=== PATIENT | female | born 1965 | race Native Hawaiian/Other Pacific Islander ===

== ENCOUNTER 2016-10-02 16:15 | Observation (INO) | payer SELFPAY ==
--- NOTE | 2016-10-02 17:53 | DX ---
PA and lateral chest History: Cough, shortness of breath for 4 days. Comparison: None available. Findings: There is diffuse peribronchial thickening with patchy left basilar opacities. There is no p neumothorax or pleural effusion. Heart size is normal. Degenerative change is present in the spine. Impression: Bronchitis with indistinct left basilar opacities that could be related to summation or e mukesh pneumonia.
--- NOTE | 2016-10-02 19:11 | DX ---
Left foot 2 views History: Mild and diffuse swelling for months without trauma. No erythema. Comparison: None available. Findings: There are destructive changes in the midfoot consistent with Charcot foot. There is lateral subluxation of the 2nd through 5th metatarsals consistent with sequela of old/subacute Lisfranc inju ry with extensive periosteal reaction in the affected metatarsals. Destructive changes in the midfoot include markedly irregular contour of the navicular at its articulation of the medial cuneiform, wit h extensive heterotopic bone formation at the dorsal aspect of the midfoot. Pes planus is present. Ca lcaneal spurring is noted at the plantar aponeurosis and Achilles tendon. Diffuse soft tissue swellin g is present. Impression: 1. Charcot foot with old/subacute Lisfranc fracture/dislocations. 2. Diffuse soft tissue swelling. Findings discussed with Sarah Miller today at 1906 hours.
[2016-10-02 19:31] LABS: % IMMATURE GRANULYOCYTES 0.2 % (0.0-1.1); ABSOLUTE IMMATURE GRANULOCYTES 0.01 10^3/uL (0.00-0.10); ADD DIFF? NO; ADD MORPH? NO; ADD SCAN? NO; ATYPICAL LYMPHOCYTE FLAG 40 (0-99); FRAGMENT RBC FLAG 0 (0-99); HEMATOCRIT 33.8 % (38.0-47.0); HEMOGLOBIN 10.9 g/dL (12.6-16.3); LEFT SHIFT FLG 0 (0-99); LIPEMIA HEMOLYSIS FLAG 80 (0-99); MEAN CELL HEMOGLOBIN 25.5 pg (27.9-34.1); MEAN CELL HEMOGLOBIN CONCENTR. 32.2 g/dL (32.4-36.7); MEAN PLATELET VOLUME 9.6 fL (8.7-11.7); PLATELET CLUMPS FLAG 0 (0-99); PLATELET COUNT 280 10^3/uL (150-400); RED BLOOD CELL COUNT 4.28 10^6/uL (4.18-5.33); RED CELL DISTRIBUTION WIDTH 12.6 % (11.5-15.2)
[2016-10-02 19:51] LABS: ALANINE AMINOTRANSFERASE 22 IU/L (9-52); ALBUMIN 3.2 g/dL (3.5-5.0); ALKALINE PHOSPHATASE 100 IU/L (38-126); ANION GAP 10 mEq/L (8-16); ASPARTATE AMINOTRANSFERASE 15 IU/L (14-46); BILIRUBIN,TOTAL 0.5 mg/dL (0.1-1.4); CALCIUM 8.7 mg/dL (8.5-10.4); CARBON DIOXIDE 27 mEq/l (22-31); CHLORIDE 96 mEq/L (97-110); CREATININE 0.9 mg/dL (0.6-1.0); GLOMERULAR FILTRATION RATE > 60; GLUCOSE 319 mg/dL (70-100); POTASSIUM 4.1 mEq/L (3.5-5.2); SODIUM 133 mEq/L (134-144); TOTAL PROTEIN 7.1 g/dL (6.3-8.2)
[2016-10-02] MEDS ORDERED: IOPAMIDOL (ISOVUE 370) 100 ML BTL IV ONE (20:08)
[2016-10-02] MEDS ORDERED: NS 1,000 ML IV ONE (20:27)
--- NOTE | 2016-10-02 20:49 | CT ---
CT of the Chest With Contrast (CT Pulmonary Angiogram) October 02, 2016 Clinical History: Chest pain Technique: Thinly collimated multidetector helical CT imaging was performed through the chest while 90 mL of Isovue-370 were injected intravenously without complication. The images were then transferr ed to an independent workstation where multiplanar and three-dimensional reconstructions were perform ed by the interpreting physician and reviewed at multiple windows. Dose reduction techniques were uti lized. Findings: Lung Windows: No infiltrate, effusion, or mass identified. Mediastinal Windows: No significant mediastinal or axillary lymphadenopathy identified. No significan t pleural disease identified. Images of the upper abdomen appear normal. CT Pulmonary Angiogram: The visualized pulmonary arterial segments appear normal without filling defe ct to suggest acute pulmonary thromboembolic disease. Impression: Negative CT examination of the chest for acute pulmonary thromboembolic disease. Results called to Dr. Miller at 8:45 p.m. at the time of the interpretation.
--- NOTE | 2016-10-02 21:07 | UCPHY ---
H & P Time Seen by Provider: 10/02/16 18:10 Patient Type: Established HPI/ROS: 51-year-old female presents complaining of cough and cold symptoms, and states she to also would like to know what is wrong with her foot that has been swollen for 4 months. She states she was seen here 2 months ago for an abscess on her chest. She states she had foot swelling and pain at that time and it has not improved, but admits that it has been swollen close to 4 months She denies pain in her foot today. The patient is able to walk without difficulty, while waiting in the waiting room she went shopping at [employer]. Review of systems As per HPI-positive cough, nasal congestion, left leg swelling General no fever no chills no weakness HEENT no eye pain no eye discharge. No eye redness, no sore throat Respiratory positive cough, no shortness of breath Cardiac no chest pain, no peripheral edema GI no abdominal pain, no diarrhea, no constipation, no nausea, no vomiting no flank pain, no hematuria, no dysuria Musculoskeletal no myalgias, positive joint pain Heme no easy bruising, no easy bleeding Endo no polyuria, no polydipsia Skin no rashes, no pruritus Neuro no syncope, no dizziness, no headaches Psych is no suicidal ideation, no homicidal ideation Past Medical/Surgical History: Patient states she has not gone to her primary care and is currently not being treated for any medical problem Social History: Recently moved here from [place] Smoking Status: Never smoked Physical Exam: 51-year-old female alert and oriented in no acute distress, nontoxic appearance afebrile HEENT atraumatic normocephalic, extraocular muscles intact, anicteric Oropharynx negative for erythema negative exudate, tolerating her own secretions Neck supple no meningismus Lungs clear to auscultation bilaterally Heart regular rate and rhythm without murmur rub or gallop Abdomen nondistended normoactive bowel sounds soft nontender Back no CVA tenderness, no step-offs, no spinal tenderness Extremities no cyanosis clubbing or edema Except left lower extremity-no erythema, no increased warmth, markedly swollen and deformed left foot with swelling up to her knee No evidence of ulcerations, no lymphangitic streaks Neuro alert and oriented, no focal deficits Constitutional: Initial Vital Signs Temperature (C) 36.9 C 10/02/16 17:28 Heart Rate 66 10/02/16 17:28 Respiratory Rate 16 10/02/16 17:28 Blood Pressure 190/87 H 10/02/16 17:28 O2 Sat (%) 98 10/02/16 17:28 O2 Delivery Mode Room Air Allergies/Adverse Reactions: No Known Allergies Allergy (Unverified 07/31/16 17:14) Home Medications: Medication Instructions Recorded Metformin HCl 500 mg PO BID #60 tablet 10/02/16 Medical Decision Making - Diagnostics Imaging: Left foot Angelica franc fracture, charcot foot cxr neg chest ct neg ED Course/Re-evaluation: Patient seen and evaluated for cough and cold symptoms, concerned about swelling in her left foot and left lower extremity for several months. IV established, lab sent Chest x-ray done, negative CBC no elevated white blood cell count Glucose 320, no acidosis IV normal saline 1 L started Foot x-ray positive for Charcot foot, Lisfranc fracture D-dimer elevated CT chest negative for pulmonary embolus still needs ultrasound to rule out DVT impression/plan 1)cold, symptomatic care 2)diabetes, will start Metformin until she can follow up 500 mg bid, given one month supply 3)hypertension, will need to follow up 4)left foot deformity, will need podiatry follow up 5) left leg swelling, need to rule out DVT sent to [facility] [place] to get ultrasoud to rule out DVT tonight - Data Points Laboratory Results: Laboratory Results 10/02/16 19:25 10/02/16 19:25 10/02/16 19:25 WBC 5.06 10^3/uL (3.80-9.50) RBC 4.28 10^6/uL (4.18-5.33) Hgb 10.9 L g/dL (12.6-16.3) Hct 33.8 L % (38.0-47.0) MCV 79.0 L fL (81.5-99.8) MCH 25.5 L pg (27.9-34.1) MCHC 32.2 L g/dL (32.4-36.7) RDW 12.6 % (11.5-15.2) Plt Count 280 10^3/uL (150-400) MPV 9.6 fL (8.7-11.7) Neut % (Auto) 50.7 % (39.3-74.2) Lymph % (Auto) 34.6 % (15.0-45.0) [place] % (Auto) 10.3 % (4.5-13.0) Eos % (Auto) 3.8 % (0.6-7.6) Baso % (Auto) 0.4 % (0.3-1.7) Nucleat RBC Rel Count 0.0 % (0.0-0.2) Absolute Neuts (auto) 2.57 10^3/uL (1.70-6.50) Absolute Lymphs (auto) 1.75 10^3/uL (1.00-3.00) Absolute Monos (auto) 0.52 10^3/uL (0.30-0.80) Absolute Eos (auto) 0.19 10^3/uL (0.03-0.40) Absolute Basos (auto) 0.02 10^3/uL (0.02-0.10) Absolute Nucleated RBC 0.00 10^3/uL (0-0.01) Immature Gran % 0.2 % (0.0-1.1) Immature Gran # 0.01 10^3/uL (0.00-0.10) D-Dimer 1.14 H ug/mLFEU (0.00-0.50) Sodium 133 L mEq/L (134-144) Potassium 4.1 mEq/L (3.5-5.2) Chloride 96 L mEq/L (97-110) Carbon Dioxide 27 mEq/l (22-31) Anion Gap 10 mEq/L (8-16) BUN 20 mg/dL (7-23) Creatinine 0.9 mg/dL (0.6-1.0) Estimated GFR > 60 Glucose 319 H mg/dL (70-100) Calcium 8.7 mg/dL (8.5-10.4) Total Bilirubin 0.5 mg/dL (0.1-1.4) AST 15 IU/L (14-46) ALT 22 IU/L (9-52) Alkaline Phosphatase 100 IU/L (38-126) Total Protein 7.1 g/dL (6.3-8.2) Albumin 3.2 L g/dL (3.5-5.0) Medications Given: Discontinued Medications Sodium Chloride (Ns) 1,000 mls @ 0 mls/hr IV ONCE ONE PRN Reason: Wide Open Stop: 10/02/16 20:28 Last Admin: 10/02/16 20:53 Dose: 1,000 mls Departure - Departure Clinical Impression: Lisfranc fracture, Diabetes, Hypertension Additional Instructions: Go directly to [facility] They are expecting you in order to get an ultrasound of your left leg swelling. Referrals: NONE *PRIMARY CARE P,. [Primary Care Provider] - As per Instructions [facility] [Provider Group] - As per Instructions [facility] [Provider Group] - As per Instructions Braulio Garcia DPM [Doctor of Podiatric Medicine] - As per Instructions Prescriptions: Metformin HCl 500 mg PO BID #60 tablet - PQRS PQRS Measurement: na
--- NOTE | 2016-10-02 22:37 | EDPHY ---
H & P Time Seen by Provider: 10/02/16 18:10 HPI/ROS: HPI CHIEF COMPLAINT: [ ] HISTORY OF PRESENT ILLNESS: [Need 4: Location, Duration, Severity, Quality, Context, Timing Modifying Factors, Associated S&S] Past Medical History: Past Surgical History: Social History: Family History: ROS REVIEW OF SYSTEMS: A comprehensive 10 point review of systems is otherwise negative aside from elements mentioned in the history of present illness. Exam Constitutional triage nursing summary reviewed, vital signs reviewed, awake/ alert. Eyes normal conjunctivae and sclera, EOMI, PERRLA. HENT normal inspection, atraumatic, moist mucus membranes, no epistaxis, neck supple/ no meningismus, no raccoon eyes. Respiratory clear to auscultation bilaterally, normal breath sounds, no respiratory distress, no wheezing. Cardiovascular rate normal, regular rhythm, no murmur, no edema, distal pulses normal. Gastrointestinal soft, non-tender, no rebound, no guarding, normal bowel sounds, no distension, no pulsatile mass. Genitourinary no CVA tenderness. Musculoskeletal no midline vertebral tenderness, full range of motion, no calf swelling, no tenderness of extremities, no meningismus, good pulses, neurovascularly intact. Skin pink, warm, & dry, no rash, skin atraumatic. Neurologic awake, alert and oriented x 3, AAOx3, moves all 4 extremities equally, motor intact, sensory intact, CN II-XII intact, normal cerebellar, normal vision, normal speech. Psychiatric normal mood/affect. Heme/Lymph/Immune no lymphadenopathy. Differential Diagnosis: Medical Decision Making: Re-evaluation: Source: Patient - Personal History LMP (Females 10-55): Now - Medical/Surgical History Hx Asthma: No Hx Chronic Respiratory Disease: No Hx Diabetes: No Hx Cardiac Disease: No Hx Renal Disease: No Hx Cirrhosis: No Hx Alcoholism: No Hx HIV/AIDS: No Hx Splenectomy or Spleen Trauma: No Other PMH: htn - Social History Smoking Status: Never smoked Constitutional: Initial Vital Signs Temperature (C) 36.9 C 10/02/16 17:28 Heart Rate 66 10/02/16 17:28 Respiratory Rate 16 10/02/16 17:28 Blood Pressure 190/87 H 10/02/16 17:28 O2 Sat (%) 98 10/02/16 17:28 O2 Delivery Mode Room Air Allergies/Adverse Reactions: No Known Allergies Allergy (Unverified 10/28/16 17:14) Home Medications: Medication Instructions Recorded Metformin HCl 500 mg PO BID #60 tablet 10/02/16 Medical Decision Making - Data Points Laboratory Results: Laboratory Results 10/02/16 19:25 10/02/16 19:25 10/02/16 19:25 WBC 5.06 10^3/uL (3.80-9.50) RBC 4.28 10^6/uL (4.18-5.33) Hgb 10.9 L g/dL (12.6-16.3) Hct 33.8 L % (38.0-47.0) MCV 79.0 L fL (81.5-99.8) MCH 25.5 L pg (27.9-34.1) MCHC 32.2 L g/dL (32.4-36.7) RDW 12.6 % (11.5-15.2) Plt Count 280 10^3/uL (150-400) MPV 9.6 fL (8.7-11.7) Neut % (Auto) 50.7 % (39.3-74.2) Lymph % (Auto) 34.6 % (15.0-45.0) [place] % (Auto) 10.3 % (4.5-13.0) Eos % (Auto) 3.8 % (0.6-7.6) Baso % (Auto) 0.4 % (0.3-1.7) Nucleat RBC Rel Count 0.0 % (0.0-0.2) Absolute Neuts (auto) 2.57 10^3/uL (1.70-6.50) Absolute Lymphs (auto) 1.75 10^3/uL (1.00-3.00) Absolute Monos (auto) 0.52 10^3/uL (0.30-0.80) Absolute Eos (auto) 0.19 10^3/uL (0.03-0.40) Absolute Basos (auto) 0.02 10^3/uL (0.02-0.10) Absolute Nucleated RBC 0.00 10^3/uL (0-0.01) Immature Gran % 0.2 % (0.0-1.1) Immature Gran # 0.01 10^3/uL (0.00-0.10) D-Dimer 1.14 H ug/mLFEU (0.00-0.50) Sodium 133 L mEq/L (134-144) Potassium 4.1 mEq/L (3.5-5.2) Chloride 96 L mEq/L (97-110) Carbon Dioxide 27 mEq/l (22-31) Anion Gap 10 mEq/L (8-16) BUN 20 mg/dL (7-23) Creatinine 0.9 mg/dL (0.6-1.0) Estimated GFR > 60 Glucose 319 H mg/dL (70-100) Calcium 8.7 mg/dL (8.5-10.4) Total Bilirubin 0.5 mg/dL (0.1-1.4) AST 15 IU/L (14-46) ALT 22 IU/L (9-52) Alkaline Phosphatase 100 IU/L (38-126) Total Protein 7.1 g/dL (6.3-8.2) Albumin 3.2 L g/dL (3.5-5.0) Medications Given: Discontinued Medications Sodium Chloride (Ns) 1,000 mls @ 0 mls/hr IV ONCE ONE PRN Reason: Wide Open Stop: 10/02/16 20:28 Last Admin: 10/02/16 20:53 Dose: 1,000 mls Departure - Departure Clinical Impression: Lisfranc fracture, Diabetes, Hypertension Additional Instructions: Go directly to [facility] They are expecting you in order to get an ultrasound of your left leg swelling. Referrals: [facility] [Provider Group] - As per Instructions [facility] [Provider Group] - As per Instructions Braulio aGrcia DPM [Doctor of Podiatric Medicine] - As per Instructions NONE *PRIMARY CARE P,. [Primary Care Provider] - As per Instructions Prescriptions: Metformin HCl 500 mg PO BID #60 tablet
--- NOTE | 2016-10-02 23:23 | EDPHY ---
[id number] 4d CHIEF COMPLAINT: Dizziness, left leg swelling rule out DVT HISTORY OF PRESENT ILLNESS: 51-year-old female presents to the emergency department after being seen at [facility]. Patient states that over the last few weeks intermittently she has felt dizzy specially when she stands up. She has not had any episodes of syncope. No headache. No chest pain or difficulty breathing. She has had URI symptoms including cough and nasal congestion. She has also had chronic swelling in her left foot for at least 4 months. She denies any known trauma or injury although she does state that she drinks alcohol occasionally. She denies any other substance abuse. She currently denies chest pain or difficulty breathing. At urgent care she was found to have elevated blood sugar of 319. She does not have a primary care provider. She moved from [place] a year and half ago. The patient had elevated D-dimer at urgent care and had a CT pulmonary angiogram which was negative for pulmonary embolism. Ultrasound was unobtainable at urgent care and she was sent to the emergency department for lower leg ultrasound. She had been given prescription for metformin and given follow-up information for podiatry for her left foot. REVIEW OF SYSTEMS: Constitutional: No fever, no chills. Eyes: No double or blurry vision. ENT: No sore throat. Respiratory: No cough, no shortness of breath. Cardiac: No chest pain. Gastrointestinal: No abdominal pain, vomiting or diarrhea. Genitourinary: No dysuria. Musculoskeletal: No neck or back pain. Skin: No rashes. Neurological: No headache. (Mary Myers) Past Medical/Surgical History: Possible alcoholism (MerleneMary spencer) Social History: Single. Originally from [place]. Moved to [place] 1 and a 1/2 years ago. ( Mary Myers) Physical Exam: General Appearance: Alert, no distress. Mentating normally and answering questions appropriately. Afebrile. Blood pressure 190/87 Eyes: Pupils equal and round. Extraocular motions are all intact. ENT: Mouth: Mucous membranes moist. Respiratory: No wheezing, rhonchi, or rales, lungs are clear to auscultation. Cardiovascular: Regular rate and rhythm. Gastrointestinal: Abdomen is soft and nontender, no masses, no rebound or guarding, bowel sounds normal. Neurological: Alert and oriented x 3, cranial nerves II through XII grossly intact Skin: Warm and dry, no rashes. Musculoskeletal: Nontender to palpate along the cervical, thoracic or lumbar spine. Neck is supple. Extremities: Full range of motion and no peripheral edema. Swelling and ecchymosis noted diffusely to the left foot. Gait is not tested. Left calf is slightly swollen compared to the right side although nontender. No pedal edema. They Psychiatric: Patient is oriented X 3, there is no agitation. (Mary Myers) Constitutional: Initial Vital Signs Temperature (C) 36.9 C 10/02/16 17:28 Heart Rate 66 10/02/16 17:28 Respiratory Rate 16 10/02/16 17:28 Blood Pressure 190/87 H 10/02/16 17:28 O2 Sat (%) 98 10/02/16 17:28 O2 Delivery Mode Room Air Allergies/Adverse Reactions: No Known Allergies Allergy (Unverified 07/31/16 17:14) Home Medications: Medication Instructions Recorded Acetaminophen [Acetaminophen Extra 1,000 mg PO DAILY 10/03/16 Strength] Ibuprofen [Motrin (*)] 400 mg PO DAILY 10/03/16 Tears/Dextran 70/Hypromellose 1 drop EACHEYE Q2 PRN 10/03/16 [Natural Balance Tears (*)] Aspirin [Aspirin 81mg (*)] 81 mg PO DAILY #0 tab 10/04/16 Lisinopril [Zestril 20 mg (*)] 20 mg PO DAILY #30 tab 10/04/16 Metformin HCl [Metformin 1000 mg] 1,000 mg PO BID #60 tablet 10/04/16 Medical Decision Making - Diagnostics Imaging: Ultrasound left lower extremity reveals no DVT. This was reported to me by Dr. Maurice Craig. (Mary Myers) ED Course/Re-evaluation: 51-year-old female presents to the emergency department to rule out DVT. The patient he was seen at urgent care and laboratory studies reveal blood sugar of 319. Her CO2 was normal. Potassium is normal. Sodium is 133. Her blood pressure is elevated now to 181/109. Patient is family history of diabetes and hypertension. She a provider at urgent care 2 months ago for an abscess to her chest wall but otherwise has never seen a primary care doctor. Ultrasound of the left lower extremity reveals no evidence of DVT. At urgent care the patient was given primary care follow-up as well as podiatry referral for her Lisfranc fracture and Charcot foot. Because this patient has now new onset diabetes, hypertension the blood pressure of 181/109, I recommended admission to the hospital. The patient states that she has been urinating frequently. She also states that she has been feeling dizzy. Care was discussed with Dr. Curtis Powell, secondary supervising physician, who recommended admission to the hospital. (Mary Myers) Differential Diagnosis: Including but not limited to Lisfranc fracture, nonunion, Charcot foot, diabetic neuropathy, diabetic ulcer, hypertensive emergency, hypertensive urgency (Mary Myers) - Data Points Laboratory Results: Laboratory Results 10/02/16 19:25 10/02/16 19:25 Medications Given: Discontinued Medications Sodium Chloride (Ns) 1,000 mls @ 0 mls/hr IV ONCE ONE PRN Reason: Wide Open Stop: 10/02/16 20:28 Last Admin: 10/02/16 20:53 Dose: 1,000 mls Insulin Human Lispro (Humalog Lispro) 0 unit SC TIDMEAL SYEDA PRN Reason: Protocol Stop: 04/01/17 07:59 Last Admin: 10/04/16 14:13 Dose: 6 units Insulin Human NPH (Humulin N Syringe) 10 units SC ONCE ONE Stop: 10/03/16 19:31 Last Admin: 10/03/16 21:57 Dose: 10 units Lisinopril (Zestril) 10 mg PO DAILY [facility] Stop: 04/01/17 00:59 Last Admin: 10/03/16 08:25 Dose: 10 mg Lisinopril (Zestril) 20 mg PO DAILY [facility] Stop: 04/02/17 08:59 Last Admin: 10/04/16 08:17 Dose: 20 mg Oxycodone HCl (Oxycodone Ir) 5 - 10 mg PO Q3HRS PRN PRN Reason: Pain, Severe Able to Take PO Stop: 10/13/16 00:16 Last Admin: 10/03/16 22:26 Dose: 5 mg Departure - Departure Disposition: [facility] Clinical Impression: Lisfranc fracture, Diabetes, Hypertension Condition: Good
[2016-10-03] MEDS ORDERED: oxyCODONE IR 5 MG TAB PO PRN (00:17)
[2016-10-03] MEDS ORDERED: ONDANSETRON 4 MG/2 ML VIAL IVP PRN (00:17)
[2016-10-03] MEDS ORDERED: ONDANSETRON DISINTEGRATING 4 MG TAB PO PRN (00:17)
[2016-10-03] MEDS ORDERED: ACETAMINOPHEN 325 MG TAB PO PRN (00:17)
[2016-10-03] MEDS ORDERED: D50W 25 GM/50 ML SYR IVP PRN (00:18)
[2016-10-03] MEDS ORDERED: NS 1,000 ML IV SCH (00:30)
[2016-10-03] MEDS ORDERED: hydrALAZINE 20 MG/ML VIAL IVP PRN (00:43)
[2016-10-03] MEDS: LISINOPRIL 10 MG TAB PO SCH ×2 (01:09→08:25)
--- NOTE | 2016-10-03 04:04 | PDGENHP ---
History and Physical - Chief Complaint lightheaded - History of Present Illness Patient is a 51-year-old female with no known medical diagnoses, although has not had medical follow-up in her adult life, presented to the urgent care complaining lightheadedness and foot swelling. Patient states she 1st noticed her left foot had become swollen and discolored about 4 months ago. She is unsure what caused this, does not remember any obvious trauma to the foot and foot is not painful. In addition to this more recently, over the last 2 weeks or so patient has reported feeling lightheaded upon standing, as well as urinating frequently. She reports urinating at least 4 times a night, denies any dysuria. In addition to the above, pt also reports nasal congestion and sneezing for 2-3 days. She recently visited family in [place] (), traveled via airplane, with a family member in [place] with similar symptoms. She denies any fevers/chills, cough, n/v/d. Over the past 2 days she has also experienced a slight frontal headache, not associated with photophobia or phonophobia. Given these constellation of symptoms she decided to go to the urgent care. Upon evaluation at the urgent care, there was concern for acute DVT. Labs revealed elevated D-dimer, so she underwent a CT angio of the chest rule out PE. This was negative for acute PE and also any acute lung pathology. X-ray of the foot revealed likely Charcot joint. Patient was then transported to the [facility] ED for further evaluation. Patient's vital signs on presentation to the urgent care and also to the ED revealed hypertension (consistently > 180/100). Labs also revealed hyperglycemia. Given patient's absence of outpatient medical follow-up, she was admitted to the hospital for further management and evaluation. 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 Originally from [place], moved to [place] 1-2 years ago. Family is in [place] and [place]. Review of Systems ROS: 10pt was reviewed & negative except for what was stated in HPI & below Physical Exam Temp Pulse Resp BP Pulse Ox 36.7 C 69 16 148/92 H 95 10/03/16 03:51 10/03/16 03:51 10/03/16 03:51 10/03/16 03:51 10/03/16 03:51 Constitutional: no apparent distress, not in pain, obese Eyes: PERRL, anicteric sclera, EOMI Ears, Nose, Mouth, Throat: moist mucous membranes, hearing normal, ears appear normal, no oral mucosal ulcers Cardiovascular: regular rate and rhythym, no murmur, rub, or gallop, pulses symmetric bilaterally, No JVD, No edema Peripheral Pulses: 2+: dorsalis-pedis (R), dorsalis-pedis (L) Respiratory: no respiratory distress, no rales or rhonchi, clear to auscultation Gastrointestinal: normoactive bowel sounds, soft, non-tender abdomen, no palpable masses Genitourinary: no bladder fullness, no bladder tenderness Skin: warm, normal color, no rashes or abrasions, no fluctuance, no induration, No mottled Musculoskeletal: full muscle strength, no muscle tenderness, other (L foot edematous, darkened discolaration; nontender to palpation) Neurologic: AAOx3, sensation intact bilaterally, CN II-XII Intact, No weakness, No numbness Psychiatric: interacting appropriately, not anxious, not encephalopathic, thought process linear Lab Data & Imaging Review 10/02/16 19:25 10/02/16 19:25 WBC 5.06 10^3/uL (3.80-9.50) 10/02/16 19:25 RBC 4.28 10^6/uL (4.18-5.33) 10/02/16 19:25 Hgb 10.9 g/dL (12.6-16.3) L 10/02/16 19:25 Hct 33.8 % (38.0-47.0) L 10/02/16 19:25 MCV 79.0 fL (81.5-99.8) L 10/02/16 19:25 MCH 25.5 pg (27.9-34.1) L 10/02/16 19:25 MCHC 32.2 g/dL (32.4-36.7) L 10/02/16 19:25 RDW 12.6 % (11.5-15.2) 10/02/16 19:25 Plt Count 280 10^3/uL (150-400) 10/02/16 19:25 MPV 9.6 fL (8.7-11.7) 10/02/16 19:25 Neut % (Auto) 50.7 % (39.3-74.2) 10/02/16 19:25 Lymph % (Auto) 34.6 % (15.0-45.0) 10/02/16 19:25 [place] % (Auto) 10.3 % (4.5-13.0) 10/02/16 19:25 Eos % (Auto) 3.8 % (0.6-7.6) 10/02/16 19:25 Baso % (Auto) 0.4 % (0.3-1.7) 10/02/16 19:25 Nucleat RBC Rel Count 0.0 % (0.0-0.2) 10/02/16 19:25 Absolute Neuts (auto) 2.57 10^3/uL (1.70-6.50) 10/02/16 19:25 Absolute Lymphs (auto) 1.75 10^3/uL (1.00-3.00) 10/02/16 19:25 Absolute Monos (auto) 0.52 10^3/uL (0.30-0.80) 10/02/16 19:25 Absolute Eos (auto) 0.19 10^3/uL (0.03-0.40) 10/02/16 19:25 Absolute Basos (auto) 0.02 10^3/uL (0.02-0.10) 10/02/16 19:25 Absolute Nucleated RBC 0.00 10^3/uL (0-0.01) 10/02/16 19:25 Immature Gran % 0.2 % (0.0-1.1) 10/02/16 19:25 Immature Gran # 0.01 10^3/uL (0.00-0.10) 10/02/16 19:25 D-Dimer 1.14 ug/mLFEU (0.00-0.50) H 10/02/16 19:25 Sodium 133 mEq/L (134-144) L 10/02/16 19:25 Potassium 4.1 mEq/L (3.5-5.2) 10/02/16 19:25 Chloride 96 mEq/L (97-110) L 10/02/16 19:25 Carbon Dioxide 27 mEq/l (22-31) 10/02/16 19:25 Anion Gap 10 mEq/L (8-16) 10/02/16 19:25 BUN 20 mg/dL (7-23) 10/02/16 19:25 Creatinine 0.9 mg/dL (0.6-1.0) 10/02/16 19:25 Estimated GFR > 60 10/02/16 19:25 Glucose 319 mg/dL (70-100) H 10/02/16 19:25 Calcium 8.7 mg/dL (8.5-10.4) 10/02/16 19:25 Total Bilirubin 0.5 mg/dL (0.1-1.4) 10/02/16 19:25 AST 15 IU/L (14-46) 10/02/16 19:25 ALT 22 IU/L (9-52) 10/02/16 19:25 Alkaline Phosphatase 100 IU/L (38-126) 10/02/16 19:25 Total Protein 7.1 g/dL (6.3-8.2) 10/02/16 19:25 Albumin 3.2 g/dL (3.5-5.0) L 10/02/16 19:25 Visualized and Interpreted Chest x-ray results: Yes Chest X-Ray results: no infiltrate, normal Visualized and Interpreted imaging results: Yes Interpretation: CT chest: no acute pulmonary embolism; no acute infiltrate, effusion or edema. LLE Doppler US: no DVT. L foot x-ray: destructive changes in midfoot consistent with charcot foot Assessment & Plan Assessment: Patient is a 51-year-old female with no recent medical follow-up who presents to the ED with lightheadedness, hypertension and hyperglycemia. Pt also recovering from recent URI. Plan: # lightheadedness Likely related to both hypertension and a degree of hypovolemia in setting of uncontrolled/undiagnosed DM2. No focal deficits on exam. Will rehydrate and initiate anti-hypertensives. # hypertensive urgency BP >180/105 on presentation and pt was complaining of headache, lightheadedness. No evidence of end-organ damage in labs. BP has improved with treatment. Likely chronic, untreated HTN exacerbated by recent URI. Given likely concomitant DM2, will initiate SHANE-I as primary anti-hypertensive. - lisinopril 10 mg po qd - hydralazine 10 mg ivp prn SBP > 180 # viral URI Pt describes 2-3 days of nasal congestion, sneezing. Pt is afebrile, does not meet SIRS criteria and has no frontal or maxillary tenderness on exam. Labs are without leukocytosis. Chest imaging also negative for signs of infection. - symptomatic treatment # acute hyperglycemia, mild pseudohyponatremia Pt denies knowledge of DM2 diagnosis. Describes recent polyuria, polydipsia, consistent with new onset/undiagnosed chronic DM2. Will check HbA1c, if significantly elevated, may need to initiate insulin therapy on diagnosis. - monitor FS TIDACD - Insulin sliding scale while inpt - f/u Hba1c, lipid panel, UA # charcot foot Pt's clinical exam and foot x-ray are consistent with classic charcot foot. No obvious signs of acute infection. Will need tight glycemic control, diabetic footwear and podiatry referral. # dispo: admit under observation status # full code
[2016-10-03 04:45] LABS: % IMMATURE GRANULYOCYTES 0.2 % (0.0-1.1); ABSOLUTE IMMATURE GRANULOCYTES 0.01 10^3/uL (0.00-0.10); ADD DIFF? NO; ADD MORPH? NO; ADD SCAN? NO; ATYPICAL LYMPHOCYTE FLAG 50 (0-99); FRAGMENT RBC FLAG 0 (0-99); HEMATOCRIT 33.3 % (38.0-47.0); HEMOGLOBIN 10.9 g/dL (12.6-16.3); LEFT SHIFT FLG 0 (0-99); LIPEMIA HEMOLYSIS FLAG 80 (0-99); MEAN CELL HEMOGLOBIN CONCENTR. 32.7 g/dL (32.4-36.7); MEAN CELL VOLUME 79.3 fL (81.5-99.8); MEAN PLATELET VOLUME 10.5 fL (8.7-11.7); PLATELET CLUMPS FLAG 0 (0-99); PLATELET COUNT 278 10^3/uL (150-400); RED CELL DISTRIBUTION WIDTH 12.7 % (11.5-15.2)
[2016-10-03 05:03] LABS: ANION GAP 10 mEq/L (8-16); CALCIUM 8.7 mg/dL (8.5-10.4); CARBON DIOXIDE 26 mEq/l (22-31); CHLORIDE 100 mEq/L (97-110); CHOLESTEROL 182 mg/dL (140-220); CHOLESTEROL/HDL RATIO 5.69 RATIO (1.00-4.44); CREATININE 0.7 mg/dL (0.6-1.0); GLOMERULAR FILTRATION RATE > 60; GLUCOSE 285 mg/dL (70-100); HIGH DENSITY LIPOPROTEIN 32 mg/dL (40-85); LDL/HDL RATIO 2.91 RATIO (1.00-3.22); LOW DENSITY LIPOPROTEIN 93 mg/dL (80-100); MAGNESIUM 1.7 mg/dL (1.6-2.3); NON-HIGH DENSITY LIPOPROTEIN 150 mg/dL (90-129); POTASSIUM 4.5 mEq/L (3.5-5.2); SODIUM 136 mEq/L (134-144); TRIGLYCERIDE 288 mg/dL (35-135); VERY LOW DENSITY LIPOPROTEINS 57 mg/dL (8-25)
--- NOTE | 2016-10-03 08:12 | HOSPPROG ---
Hospitalist Progress Note Assessment/Plan: 51-year-old female with a known history of possible diabetes and perhaps hypertension who presented with hypertensive urgency. Patient is new to me today. -hypertensive urgency. Her blood pressure remains intermittently elevated and weak I have increased her dose of antihypertensives. -diabetes mellitus: Patient previously has been treated only with metformin. Today we have use metformin and sliding scale insulin and glucose remains greater than 200. I will increase her insulin and cover with Lantus. -disposition: Patient will require greater than 2 midnights for resolution of her hypertension and management of her diabetes she should be changed to inpatient status -DVT prophylaxis will be with early ambulation Subjective: No complaints no complaint of chest pain shortness of breath headache. She reports she feels improved Objective: Vital Signs Temp Pulse Resp BP Pulse Ox 36.5 C 60 16 162/90 H 92 10/03/16 07:20 10/03/16 07:20 10/03/16 07:20 10/03/16 07:20 10/03/16 07:20 Laboratory Results 10/03/16 03:52 10/03/16 03:52 10/02/16 10/03/16 10/04/16 05:59 05:59 05:59 Intake Total 1200 Balance 1200 Selected Entries 10/03/16 10/03/16 10/03/16 00:24 00:45 03:51 Blood Pressure 180/109 H 154/89 H 148/92 H 10/03/16 07:20 Blood Pressure 162/90 H Laboratory Tests 10/02/16 10/03/16 19:25 03:52 Hgb 10.9 L 10.9 L Triglycerides 288 H VLDL Cholesterol 57 H Non-HDL Cholesterol 150 H HDL Cholesterol 32 L - Time Spent With Patient Time Spent with Patient: greater than 35 minutes Time Spent with Patient: Greater than 35 minutes spent on this patients care, greater than 50% of time spent counseling, educating, and coordinating care regarding the above mentioned plan. - Physical Exam Constitutional: no apparent distress Eyes: PERRL Ears, Nose, Mouth, Throat: moist mucous membranes Cardiovascular: regular rate and rhythym, no murmur, rub, or gallop Respiratory: no respiratory distress, no rales or rhonchi, clear to auscultation Gastrointestinal: normoactive bowel sounds, soft, non-tender abdomen, no palpable masses Skin: warm Musculoskeletal: full muscle strength Neurologic: AAOx3, CN II-XII Intact ICD10 Worksheet Patient Problems: Problems Problem Status Diagnosed Diabetes Acute Hypertension Acute Lisfranc fracture Acute
--- NOTE | 2016-10-03 08:19 | US ---
Venous Doppler Study of left Lower Extremity Clinical Indications: Swelling. Technique: High-frequency transducer was used for imaging and Doppler study of the deep veins of the leg from the upper calf to the groin. Pulsed Doppler and color Doppler were utilized, along with va rious maneuvers, to assess flow in the deep veins. Findings: The deep veins of the groin, thigh, knee, and upper calf are well displayed and are normal ly compressible. Doppler flow patterns are unremarkable. There is no evidence of deep venous thromb osis. There is normal compression of the greater saphenous vein without superficial thrombosis. Is a note of lymph node prominence within the left groin, largest measuring 3.25 cm. Impression: No evidence of deep vein thrombosis in the left leg. Left inguinal lymphadenopathy. Results called to Mary Olson PA-C at the time of the examination.
[2016-10-03] MEDS: INSULIN LISPRO 100 UNIT/ML SC SCH ×3 (08:25→17:30)
[2016-10-03 11:23] LABS: COLOR PALE YELLOW; LEUKOCYTE ESTERASE,URINE NEGATIVE (NEGATIVE); NITRITE,URINE NEGATIVE (NEGATIVE)
[2016-10-03] MEDS ORDERED: TEARS/DEXTRAN 70/HYPROMELLOSE 15 ML OPHT.BTL EACHEYE PRN (17:57)
[2016-10-03] MEDS ORDERED: INSULIN NPH HUMAN 100 UNITS/ML SYRINGE SC ONE (19:30)
[2016-10-04 07:15] VITALS: RESP 16; TEMP 98; O2SAT 94
[2016-10-04] MEDS: INSULIN LISPRO 100 UNIT/ML SC SCH ×3 (08:17→14:13)
[2016-10-04] MEDS ORDERED: LISINOPRIL 20 MG TAB PO SCH (09:00)
[2016-10-04 11:30] VITALS: BP 126/75; PULSE 75
--- NOTE | 2016-10-04 12:50 | HOSPPROG ---
Hospitalist Progress Note Assessment/Plan: 51 yo F w likely poorly controlled dm and htn htn: lisinopril 20 dm: metformin 1000 bid dispo: home today > 30 min Subjective: bp better controlled. wishes for dc Objective: Vital Signs Temp Pulse Resp BP Pulse Ox 36.7 C 75 16 126/75 H 94 10/04/16 07:13 10/04/16 11:29 10/04/16 11:29 10/04/16 11:29 10/04/16 11:29 Laboratory Results 10/03/16 03:52 10/03/16 03:52 10/03/16 10/04/16 10/05/16 05:59 05:59 05:59 Intake Total 1200 1310 Balance 1200 1310 - Physical Exam Constitutional: no apparent distress, appears nourished Eyes: PERRL, anicteric sclera Ears, Nose, Mouth, Throat: moist mucous membranes, hearing normal Cardiovascular: regular rate and rhythym, no murmur, rub, or gallop Respiratory: no respiratory distress, no rales or rhonchi Gastrointestinal: normoactive bowel sounds, soft, non-tender abdomen Genitourinary: No see in urethra Skin: warm, normal color Musculoskeletal: other (L charcot foot) Neurologic: AAOx3, sensation intact bilaterally Psychiatric: interacting appropriately ICD10 Worksheet Patient Problems: Problems Problem Status Diagnosed Diabetes Acute Hypertension Acute Lisfranc fracture Acute
--- NOTE | 2016-10-04 13:19 | GDS ---
[f rep st] DISCHARGE SUMMARY DISCHARGE DIAGNOSES: 1. Likely uncontrolled diabetes that is longstanding. 2. Charcot foot on the left foot. 3. Hypertension. HOSPITAL COURSE: Please see admission history and physical by Dr. Aaliyah Cordon. The patient pr esented with chest pain and shortness of breath, lightheadedness and foot swelling. She was found to be hyperglycemic and hypertensive with a Charcot foot. She was started on lisinopril 20 with improve ment in her blood pressures. She received metformin 500 b.i.d. with blood sugars in the 200s. This was increased to a 1000 b.i.d. the patient is anxious for discharge, so she was discharged home with outpatient followup. She was advised that she needs to see Podiatry regarding offloading her [place] t foot with a boot, as well as a primary care physician for up-titration of her diabetes medications. Her calculated LDL was 93 and she was prescribed a statin as well. /[id number]/MODL
[2016-10-04] MEDS ORDERED: IBUPROFEN 200 MG TAB PO ONE (15:53)
== END 2016-10-04 15:58 | disposition home or self-care (01) ==
LOC: CED 16:15 → F2W 10-03 00:33
PROVIDERS: ADMIT Internal Medicine; ATTEND Internal Medicine
DX: E11.65 Type 2 diabetes mellitus with hyperglycemia (principal); E11.610 Type 2 diabetes mellitus with diabetic neuropathic arthropathy; I16.0 Hypertensive urgency; Z83.3 Family history of diabetes mellitus; J06.9 Acute upper respiratory infection, unspecified
CPT/HCPCS: 71020-PO; 71275-PO; 73620-PO; 80053-PO; 85025-PO; 85378-PO; 96360-PO; 97116-GP; 97161-GP; 99215-PO; G0378; G0463-PO; J1815; Q9967

== ENCOUNTER → 2017-10-11 | Outpatient (CLI) | payer MEDICAID ==
[~2017-10-11] MED LIST: GADOBUTROL 10 ML VIAL IVP ONE
== END ==
LOC: FIMAGING 06:46
PROVIDERS: ATTEND Surgery
DX: L97.529 Non-pressure chronic ulcer of other part of left foot with unspecified severity (principal); E11.621 Type 2 diabetes mellitus with foot ulcer; R93.6 Abnormal findings on diagnostic imaging of limbs
CPT/HCPCS: A9585